=== PATIENT | male | born 1970 | race Hispanic/Latino ===

== ENCOUNTER 2017-04-02 20:32 | Emergency (ER) | payer BC ==
[~2017-04-02] VITALS: Ht 154.9 cm; Wt 61.2 kg
[~2017-04-02 20:32] MED LIST: DIAZEPAM10 MG PO; DICYCLOMINE HCL20 MG; DOXYCYCLINE HY100 M3 PO; PANTOPRAZOLE SO40 MG PO
[2017-04-02] MEDS ORDERED: IBUPROFEN 600 MG TAB PO STA (20:46)
[2017-04-02 21:01] LABS: BASOPHILS % 0.5 % (0.0-1.0); EOSINOPHILS # (AUTO) 0.2 (0.0-0.4); EOSINOPHILS % 2.4 % (0.0-6.0); HEMATOCRIT 41.1 % (38.2-49.6); HEMOGLOBIN 13.9 g/dL (14.0-18.0); LYMPHOCYTES # (AUTO) 0.8 (1.0-3.2); LYMPHOCYTES % 12.7 % (18.0-39.1); MEAN CORPUSCULAR HEMOGLOBIN 31.4 pg (28-32); MEAN CORPUSCULAR HGB CONC 33.8 g/dL (31-35); MONOCYTES # (AUTO) 1.2 (0.2-0.8); MONOCYTES % 19.8 % (4.4-11.3); NEUTROPHILS % 64.3 % (38.7-80.0); PLATELET COUNT 232 x10e3/uL (140-360); RED BLOOD COUNT 4.42 x10e6/uL (4.3-5.7)
[2017-04-02 21:12] LABS: STREPTOCOCCUS GRP A ANTIGEN NEGATIVE (NEGATIVE)
[2017-04-02 21:17] LABS: ALANINE AMINOTRANSFERASE 33 IU/L (0-55); ALBUMIN/GLOBULIN RATIO 1.3 (0.8-2.0); ALKALINE PHOSPHATASE 59 IU/L (40-150); ANION GAP 12.4 mmol/L (8-16); BLOOD UREA NITROGEN 11 mg/dL (7-26); BUN/CREATININE RATIO 11 (6-25); CALCIUM 8.2 mg/dL (8.4-10.2); CARBON DIOXIDE 24 mmol/L (22-29); CHLORIDE 105 mmol/L (98-107); EST GLOMERULAR FILTRATION RATE > 60 ML/MIN (60-); GLUCOSE 171 mg/dL (74-118); POTASSIUM 3.4 mmol/L (3.5-5.1); SODIUM 138 mmol/L (136-145)
[2017-04-02 21:20] LABS: INFLUENZAE A&B ANTIGEN (RAPID) NEGATIVE (NEGATIVE)
--- NOTE | 2017-04-02 21:21 | Diagnostic Imaging Report ---
CHEST 2 VIEWS, Technique: CHEST 2 VIEWS Comparison: None Clinical history: Chills, fever, cough DISCUSSION: Normal appearance of the heart, mediastinum, lungs and pleural spaces. IMPRESSION: No acute abnormality Signed by: Dr Edwige Chow MD on 04/02/2017 9:17 PM
== END 2017-04-02 21:50 | disposition home or self-care (01) ==
LOC: ER 20:32
DX: R50.9 Fever, unspecified (principal); R05 Cough; J20.9 Acute bronchitis, unspecified
CPT/HCPCS: 36415; 71046; 80053; 83518; 85025; 87070; 87400; 99284

== ENCOUNTER → 2017-11-22 | Day surgery (SDC) | payer BC ==
[2017-11-17 17:10] LABS: BASOPHILS # (AUTO) 0.1 (0.0-0.1); BASOPHILS % 0.6 % (0.0-1.0); EOSINOPHILS # (AUTO) 0.7 (0.0-0.4); HEMATOCRIT 43.3 % (38.2-49.6); HEMOGLOBIN 14.7 g/dL (14.0-18.0); LYMPHOCYTES # (AUTO) 2.8 (1.0-3.2); MEAN CORPUSCULAR HEMOGLOBIN 31.8 pg (28-32); MEAN CORPUSCULAR HGB CONC 33.9 g/dL (31-35); MEAN CORPUSCULAR VOLUME 93.7 fL (81-99); MONOCYTES # (AUTO) 0.8 (0.2-0.8); MONOCYTES % 9.6 % (4.4-11.3); NEUTROPHILS % 48.2 % (38.7-80.0); PLATELET COUNT 291 x10e3/uL (140-360); RED BLOOD COUNT 4.62 x10e6/uL (4.3-5.7); RED CELL DISTRIBUTION WIDTH 12.6 % (11.7-14.4)
[2017-11-17 19:17] LABS: ALANINE AMINOTRANSFERASE 26 IU/L (0-55); ALBUMIN 4.2 g/dL (3.5-5.0); ALBUMIN/GLOBULIN RATIO 1.3 (0.8-2.0); ALKALINE PHOSPHATASE 60 IU/L (40-150); ANION GAP 12.9 mmol/L (8-16); BLOOD UREA NITROGEN 16 mg/dL (7-26); BUN/CREATININE RATIO 19 (6-25); CARBON DIOXIDE 28 mmol/L (22-29); CHLORIDE 103 mmol/L (98-107); CREATININE, SERUM 0.83 mg/dL (0.72-1.25); EST GLOMERULAR FILTRATION RATE > 60 ML/MIN (60-); GLUCOSE 90 mg/dL (74-118); POTASSIUM 3.9 mmol/L (3.5-5.1); SODIUM 140 mmol/L (136-145)
[~2017-11-22] MED LIST changes: +FENTANYL CITRATE/PF 100MCG/2 ML INJ ONE; +HYOSCYAMINE SULFATE 0.5 MG/ML INJ ONE; +MIDAZOLAM HCL 2 MG/2 ML VIAL ONE; +NEXIUM40 MG; +PROPOFOL IV EMULSION 10 MG/ML 50 ML VIAL ONE
--- NOTE | 2017-11-22 13:47 | Operative Report ---
DATE OF PROCEDURE: November 22, 2017 REFERRING PHYSICIAN: Dr. Tasha Sparks. PROCEDURES PERFORMED 1. Esophagogastroduodenoscopy with biopsies. 2. Colonoscopy with biopsies and polypectomy. INDICATIONS FOR EGD: Upper abdominal pain, acid reflux. INDICATIONS FOR COLONOSCOPY: History of bright red blood per rectum, rectal polyps. MEDICATION: Patient was done under MAC. Please see anesthesiologist's note. PROCEDURE: With patient in left lateral decubitus position, a flexible fiberoptic Olympus gastroscope was introduced into the esophagus under direct visualization without any difficulty. There was some patchy erythema noted in distal esophagus. The scope was then advanced with ease into the stomach. Mucosa overlying the antrum and the body revealed some diffuse erythema and moderate edema, and biopsies were obtained and sent to stain for H. pylori. Pylorus appeared to be of normal contour and shape. It was intubated with ease and the scope was advanced all the way to the 2nd portion of the duodenum. The scope was then withdrawn slowly, and the mucosa overlying the proximal 2nd portion appeared to be within normal limits. There was some patchy erythema noted in the duodenal bulb. The scope was then withdrawn back into the stomach and retroflexed, and mucosa overlying the fundus and the cardia appeared to be within normal limits. The scope was then straightened out. It was subsequently withdrawn. Patient tolerated the procedure well. IMPRESSION 1. Mild distal esophagitis. 2. Gastritis, biopsied. Biopsies sent to stain for Helicobacter pylori. 3. Duodenitis, bulb, mild. PLAN: Follow up histology. Initiate Protonix 40 mg 1 p.o. q.a.m a.c. Patient was then turned around. After adequate lubrication of the anal canal, a flexible fiberoptic Olympus colonoscope was inserted into the rectum with ease and advanced all the way to the cecum. It was then withdrawn slowly. Mucosa overlying the cecum, ascending colon, and transverse colon appeared to be within normal limits. Mild patchy inflammatory changes were noted in the left colon and the rectum, and random biopsies were obtained. Two polyps were hot biopsied from the rectum. The scope was then retroflexed into the distal rectum and small internal hemorrhoids were noted, none of which was actively bleeding. The scope was then straightened out, it was subsequently withdrawn. Patient tolerated the procedure well. IMPRESSION 1. Mild patchy left-sided colitis. 2. Proctitis, mild. 3. Rectal polyps x2, hot biopsied. 4. Internal hemorrhoids, none actively bleeding. PLAN: Follow up histology. Initiate VSL#3 one p.o. daily, high-fiber low-fat diet, high-fiber supplement. Patient might benefit from a followup colonoscopy in 3 to 5 years. Job#: [id number] LPA cc:DR. Adam SIDDIQI
--- OUTSIDE RECORDS SUMMARY | 2017-12-02 11:56 | XMS REPORT ---
Author [facility] Address Unknown Phone Unavailable Care Team Providers Care Plum Packer Name Role Phone Holli BAUER Unavailable Unavailable Problems This patient has no known problems. Allergies, Adverse Reactions, Alerts This patient has no known allergies or adverse reactions. Medications This patient has no known medications. Results Test Description Test Time Test Comments Text Results Atomic Results Result Comments CHEST 2 VIEWS [place] [address] Patient Name: KEITH VIVEROS MR #: [id number] : 1970 Age/Sex: 46/M Req #: [id number] Adm Physician: Ordered by: MARTIR PRYOR [employer] Report #: [id number] Location: ER Room/Bed: Procedure: [id number] DX/CHEST 2 VIEWS Exam Date: 04/02/17 Exam Time: 2054 REPORT STATUS: Signed CHEST 2 VIEWS, Technique: CHEST 2 VIEWS Comparison: None Clinical history: Chills, fever, cough DISCUSSION: Normal appearance of the heart, mediastinum, lungs and pleural spaces. IMPRESSION: No acute abnormality Signed by: Dr Yunior Chow MD on 04/02/2017 9:17 PM Dictated By: YUNIOR CHOW MD 16 Transcribed By: HEMALATHA on 04/02/172116 COPY TO: MARTIR PRYOR [employer]
== END | disposition home or self-care (01) ==
LOC: OR 08:40
PROVIDERS: ATTEND Internal Medicine Gastroenterology
DX: K29.70 Gastritis, unspecified, without bleeding (principal); K62.1 Rectal polyp; K51.50 Left sided colitis without complications; K29.80 Duodenitis without bleeding; K21.9 Gastro-esophageal reflux disease without esophagitis; K20.9 Esophagitis, unspecified; K62.89 Other specified diseases of anus and rectum; K64.8 Other hemorrhoids; A69.20 Lyme disease, unspecified; R00.1 Bradycardia, unspecified; Z01.810 Encounter for preprocedural cardiovascular examination; Z01.812 Encounter for preprocedural laboratory examination; Z88.1 Allergy status to other antibiotic agents
CPT/HCPCS: 36415; 43239; 45380; 45384; 80053; 85025; 93005; J1980; J2250

== ENCOUNTER 2021-03-10 17:34 | Emergency (ER) | payer BC ==
[~2021-03-10] VITALS: Ht 154.9 cm; Wt 59.0 kg
[~2021-03-10 17:34] MED LIST changes: -FENTANYL CITRATE/PF 100MCG/2 ML INJ ONE; -HYOSCYAMINE SULFATE 0.5 MG/ML INJ ONE; -MIDAZOLAM HCL 2 MG/2 ML VIAL ONE; -PROPOFOL IV EMULSION 10 MG/ML 50 ML VIAL ONE
[2021-03-10] MEDS ORDERED: AZITHROMYCIN250 MG PO (18:22)
[2021-03-10] MEDS ORDERED: PREDNISONE50 MG PO (18:22)
[2021-03-10] MEDS ORDERED: VENTOLIN HFA18 GM INH (18:22)
== END 2021-03-10 18:29 | disposition home or self-care (01) ==
LOC: ER 17:40
DX: U07.1 COVID-19 (principal); R50.9 Fever, unspecified; R05.9 Cough, unspecified; R06.02 Shortness of breath
CPT/HCPCS: 93005; 99283

== ENCOUNTER → 2021-09-18 | Outpatient (CLI) | payer BC ==
[~2021-09-18] MED LIST changes: +AZITHROMYCIN250 MG PO; +PREDNISONE50 MG PO; +VENTOLIN HFA18 GM INH
== END ==
LOC: MRI 08:58
PROVIDERS: ATTEND Podiatrist Foot & Ankle Surgery
DX: S86.012A Strain of left Achilles tendon, initial encounter (principal)

== ENCOUNTER 2021-11-15 13:00 | Outpatient (RCR) | payer BC | END 2021-11-16 | LOC: PT 13:00 | PROVIDERS: ATTEND Podiatrist Foot & Ankle Surgery | DX: M76.62 Achilles tendinitis, left leg (principal) ==